=== PATIENT | female | born 1945 | race Caucasian/White ===

== ENCOUNTER 2017-09-02 11:48 | Emergency (ER) | payer OTHER ==
[~2017-09-02] VITALS: Ht 162.6 cm; Wt 81.2 kg
[2017-09-02] MEDS ORDERED: LISINOPRIL10 MG (11:55)
== END 2017-09-02 14:48 | disposition home or self-care (01) ==
LOC: ER 11:48
DX: J03.90 Acute tonsillitis, unspecified (principal); J11.1 Influenza due to unidentified influenza virus with other respiratory manifestations